=== PATIENT | male | born 1990 | race Caucasian/White ===

== ENCOUNTER 2022-06-22 10:47 | Emergency (ER) | payer BC, OTHER ==
[2022-06-22 10:53] VITALS: BP 150/81; PULSE 81; RESP 18; TEMP 97.9
[2022-06-22] MEDS ORDERED: KETOROLAC 15 MG/ML 1 ML VIAL IM STA (10:59)
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
--- NOTE | 2022-06-22 11:29 | XR ---
EXAMINATION TYPE: XR foot complete RT DATE OF EXAM: 06/22/2022 COMPARISON: None HISTORY: Pain TECHNIQUE: 3 view right foot FINDINGS: No acute fractures or dislocations are evident. Soft tissues appear unremarkable. Follow up exams can be performed 7-10 days from acute trauma for continued pain. IMPRESSION: 1. Normal 3 view right foot
--- NOTE | 2022-06-22 11:32 | XR ---
EXAMINATION TYPE: XR ankle complete RT DATE OF EXAM: 06/22/2022 COMPARISON: None HISTORY: Pain, fall jumping TECHNIQUE: 3 view right ankle FINDINGS: The ankle mortise is intact. In the AP projection there may be some subtle calcification in ferior to the lateral malleolus. This is not identified on the additional projections and may be due to positioning. An avulsion is not entirely excluded. There is soft tissue swelling over the lateral malleolus. Follow up exams can be performed 7-10 days from acute trauma for continued pain. MRI could be perform ed to evaluate for soft tissue injury. IMPRESSION: 1. There is some calcification inferior to the medial malleolus right ankle which could be an avulsi on. This could be artifact due to positioning. There is soft tissue swelling over this site. Consider avulsion and close follow-up.
== END 2022-06-22 12:09 | disposition home or self-care (01) ==
LOC: EC 10:47
DX: S82.51XA Displaced fracture of medial malleolus of right tibia, initial encounter for closed fracture (principal); I10 Essential (primary) hypertension; F17.200 Nicotine dependence, unspecified, uncomplicated; W19.XXXA Unspecified fall, initial encounter
CPT/HCPCS: 73610; 73630; 99283; 96372; L4350; J1885

== ENCOUNTER 2022-09-14 23:38 | Inpatient (IN) | payer BC ==
[2022-09-15 00:18] VITALS: BP 122/74; PULSE 88; RESP 15; TEMP 98.6
[2022-09-15] MEDS ORDERED: LORazepam 2 MG/ML INJ IM STA (00:30)
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
[2022-09-15] MEDS ORDERED: HALOPERIDOL LACTATE 5 MG/ML 1 ML VIAL IM PRN (09:19)
[2022-09-15] MEDS ORDERED: LORazepam 1 MG/0.5 ML VIAL IM PRN ×2 (09:19→10:02)
[2022-09-15] MEDS ORDERED: ACETAMINOPHEN TAB 325 MG TAB PO PRN (09:19)
[2022-09-15] MEDS ORDERED: MAGNESIUM HYDROXIDE 2,400 MG/10 ML CUP PO PRN (09:19)
[2022-09-15] MEDS ORDERED: MAG HYDROX/AL HYDROX/SIMETH 30 ML CUP PO PRN (09:19)
[2022-09-15] MEDS: FOLIC ACID 1 MG TAB PO SCH ×2 (10:36→10:41)
[2022-09-15] MEDS: MULTIVITAMINS, THERA 1 EACH TAB PO SCH ×2 (10:36→10:41)
[2022-09-15] MEDS: THIAMINE 100 MG TAB PO SCH ×2 (10:36→10:40)
[2022-09-15] MEDS: chlordiazePOXIDE 25 MG CAP PO SCH ×3 (10:37→16:39)
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
[2022-09-16] MEDS: QUEtiapine 50 MG TAB PO SCH ×2 (05:59→20:19)
[2022-09-16] MEDS: chlordiazePOXIDE 25 MG CAP PO SCH ×3 (05:59→11:29)
[2022-09-16] MEDS: MULTIVITAMINS, THERA 1 EACH TAB PO SCH ×2 (09:18→10:28)
[2022-09-16] MEDS: FOLIC ACID 1 MG TAB PO SCH ×2 (09:18→10:28)
[2022-09-16] MEDS: SERTRALINE 50 MG TAB PO SCH ×2 (09:18→10:28)
[2022-09-16] MEDS: THIAMINE 100 MG TAB PO SCH ×2 (09:18→10:28)
[2022-09-16] MEDS: NICOTINE 14MG/24HR PATCH TRANSDERM SCH ×2 (09:18→10:28)
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
--- NOTE | 2022-09-16 10:45 | P.HPMEDMHU ---
History of Present Illness H&P Date: 09/16/22 Chief Complaint: Anxiety Patient is a 32-year-old male with a past medical history of PTSD and depression and anxiety who was admitted to the psych unit for major depressive disorder. Patient states that he does not take any medications at home. Patient stated th at he does smoke extensively. He states that he would like to quit smoking. He is requesting for nicotine patches on discharge. Patient has no acute medical complaints. He believes he has ADHD and is wondering if he can get some Adderall. Review of Systems 10 ROS reviewed and are negative except as noted in HPI Past Medical History Past Medical History: Hypertension History of Any Multi-Drug Resistant Organisms: None Reported Past Surgical History: Tonsillectomy Past Psychological History: Anxiety, Depression, PTSD Smoking Status: Current every day smoker Past Alcohol Use History: Occasional Past Drug Use History: None Reported Medications and Allergies Home Medications Medication Instructions Recorded Confirmed Type Ibuprofen [Motrin] 800 mg PO Q6HR #30 tab 06/22/22 Rx Allergies Allergy/AdvReac Type Severity Reaction Status Date / Time No Known Allergies Allergy Verified 09/15/22 00:13 Physical Exam Osteopathic Statement: *. No significant issues noted on an osteopathic structural exam other than those noted in the History and Physical/Consult. General: [Alert and oriented, well nourished, no acute distress]. Eye: [PERRL, EOMI, normal conjunctiva]. HENT: [Normocephalic, clear tympanic membranes, normal hearing, moist oral mucosa, no scleral icterus, no sinus tenderness]. Neck: [Supple, non-tender, no carotid bruits, no JVD, no lymphadenopathy]. Lungs: [Clear to auscultation and percussion, non-labored respiration]. Heart: [Normal rate, regular rhythm, no murmur, gallop or edema]. Abdomen: [Soft, non-tender, non-distended, normal bowel sounds, no masses]. Musculoskeletal: [Normal range of motion and strength, no tenderness or swelling]. Skin: [Skin is warm, dry and pink, no rashes or lesions]. Neurologic: [Awake, alert, and oriented X3, CN II-XII intact]. Psychiatric: [Cooperative, appropriate mood and affect]. Cranial Nerve Examination - Cranial Nerves Cranial Nerve I- Olfactory: Intact Cranial Nerve II- Optic: Intact Cranial Nerve III- Oculomotor: Intact Cranial Nerve IV- Trochlear: Intact Cranial Nerve V- Trigeminal: Intact Cranial Nerve - Abducens: Intact Cranial Nerve VII- Facial: Intact Cranial Nerve VIII- Auditory: Intact Cranial Nerve IX- Glossopharyngeal: Intact Cranial Nerve X- Vagus: Intact Cranial Nerve XI- Accessory: Intact Cranial Nerve XII- Hypoglossal: Intact Assessment and Plan Assessment: Tobacco abuse Patient counseled on smoking cessation Major depressive disorder As per your psych management Thank you for the consult. Please do not hesitate to contact us.
[2022-09-16 12:02] LABS: Basophils # (A) 0.1 k/uL (0-0.2); Basophils % (A) 1 %; Eosinophils # (A) 0.1 k/uL (0-0.7); Eosinophils % (A) 1 %; HCT 46.9 % (39.0-53.0); Lymphocytes # (A) 1.4 k/uL (1.0-4.8); Lymphocytes % (A) 22 %; MCH 30.5 pg (25.0-35.0); MCHC 34.1 g/dL (31.0-37.0); MCV 89.4 fL (80.0-100.0); Mean Platelet Volume 6.7; Monocytes # (A) 0.2 k/uL (0-1.0); Monocytes % (A) 3 %; Neutrophils # (A) 4.6 k/uL (1.3-7.7); Neutrophils % (A) 73 %; Platelet Count 322 k/uL (150-450); RBC 5.24 m/uL (4.30-5.90); RDW 11.9 % (11.5-15.5); WBC 6.3 k/uL (3.8-10.6)
[2022-09-16 12:32] LABS: ALT 27 U/L (4-49); AST 37 U/L (17-59); African American GFR (CKD) >90 (>60 ml/min/1.73 sqM); Albumin 4.5 g/dL (3.5-5.0); Alkaline Phosphatase 67 U/L (38-126); Anion Gap 11 mmol/L; Bilirubin, Delta 0.2 mg/dL (0.0-0.2); Bilirubin,Unconjugated 0.7 mg/dL (0.0-1.1); Blood Urea Nitrogen 23 mg/dL (9-20); Calcium 9.5 mg/dL (8.4-10.2); Carbon Dioxide 27 mmol/L (22-30); Chloride 103 mmol/L (98-107); Glucose 89 mg/dL (74-99); Non-African American GFR(CKD) 87 (>60 ml/min/1.73 sqM); Potassium 5.1 mmol/L (3.5-5.1); Sodium 141 mmol/L (137-145); Total Bilirubin 0.9 mg/dL (0.2-1.3); Total Protein 7.1 g/dL (6.3-8.2)
[2022-09-16] MEDS: LORazepam 1 MG TAB PO PRN (16:54)
[2022-09-16] MEDS: haloperidoL 5 MG TAB PO PRN (16:56)
[2022-09-16 18:09] LABS: Chol/HDL Ratio 3.76 Ratio; LDL Cholesterol,Calculated 106.7 mg/dL (0.0-131.0)
[2022-09-17] MEDS: NICOTINE 14MG/24HR PATCH TRANSDERM SCH (08:11)
[2022-09-17] MEDS: FOLIC ACID 1 MG TAB PO SCH (08:12)
[2022-09-17] MEDS: SERTRALINE 50 MG TAB PO SCH (08:12)
[2022-09-17] MEDS: MULTIVITAMINS, THERA 1 EACH TAB PO SCH (08:12)
[2022-09-17] MEDS: THIAMINE 100 MG TAB PO SCH (08:12)
[2022-09-17] MEDS: LORazepam 1 MG TAB PO PRN ×3 (08:15→19:47)
--- NOTE | 2022-09-17 11:34 | P.PN ---
Progress Note - Text Progress Note Date: 09/17/22 Interval History: Patient was seen lying in bed today and was directable and agreeable to speak with health underwriter. Patient claims that he is doing better with regards to his mood and irritability. He appeared to be more directable during conversation and more appropriate. He states that he spoke with his yesterday over the phone and states that "we were working on her relationship" and states that he is allowed back. He still not has signed an MARS to plan for discharge. He claims that the medications of been helping so far and wants to remain on the same dose. He states that the Seroquel is helping him with sleep. He states that he is feeling less impulsive and less angry at this time. He states that he is going to some groups and more active on the unit however in the evening and afternoon. He continues to be fairly focused on discharge. Has been taking his medications. At this time patient denies any suicidal or homical ideations, intent or plan. Patient denies any auditory, visual hallucinations and denies any paranoia or delusions. Patient was fairly focused on discharge. Mental Status Exam: General Appearance: Patient appears to be well built, laying in bed, stated age is alert, directable, less irritable today Behavior: Patient is less irritable today. More directable. Speech: Patient's speech is fluent and nonpressured. Mood/Affect: Mood is "good", affect is incongruent and constricted. Suicidality/Homicidality: Patient denies having any suicidal or homicidal ideation intent or plan. Perceptions: Patient denies any visual hallucinations and denies any auditory hallucinations Though content/process: Seems to be fairly focused on discharge. Appears to be more future oriented. More logical. Memory and concentration: AOX3, grossly intact for the purposes of this session Judgment and insight: Improving mildly. Assessment Major depressive disorder, without psychotic features PTSD Alcohol abuse Nicotine dependence Plan: -Patient continues to meet criteria for inpatient psychiatric admission for symptom stabilization and safety. Patient has signed adult voluntary form and was placed in patient's chart. -Medications: Zoloft 50 mg daily for mood/anxiety, Seroquel 50 mg daily at bedtime for mood stabilization/anxiety/sleep. decrease librium 10 mg tid for etoh withdrawals. -When necessary Ativan and Haldol for agitation/aggression. -NRT - nicotine patch -SW on board for discharge planning. Encouraged the patient to participate in [place]. Patient is improving psychiatrically. waste water worker to touch base with patient's over the phone to discuss discharge planning and also ensure that guns or weapons are not in the house. Likely discharge tomorrow back home.
[2022-09-17] MEDS: haloperidoL 5 MG TAB PO PRN (13:41)
[2022-09-17] MEDS: NICOTINE GUM (POLACRILEX) 2 MG GUM BUCCAL PRN ×2 (14:47→20:39)
[2022-09-17] MEDS: QUEtiapine 50 MG TAB PO SCH (21:03)
[2022-09-18] MEDS: MULTIVITAMINS, THERA 1 EACH TAB PO SCH (08:53)
[2022-09-18] MEDS: THIAMINE 100 MG TAB PO SCH (08:53)
[2022-09-18] MEDS: SERTRALINE 50 MG TAB PO SCH (08:53)
[2022-09-18] MEDS: NICOTINE 14MG/24HR PATCH TRANSDERM SCH (08:53)
[2022-09-18] MEDS: FOLIC ACID 1 MG TAB PO SCH (08:53)
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
[2022-09-18] MEDS: LORazepam 1 MG TAB PO PRN (11:38)
== END 2022-09-18 11:48 | disposition home or self-care (01) | DRG 881 ==
LOC: EC 23:38 → 3MHU 09-15 09:09
PROVIDERS: ADMIT Psychiatry & Neurology Psychiatry; ATTEND Psychiatry & Neurology Psychiatry
DX: F32.9 Major depressive disorder, single episode, unspecified (principal); R45.851 Suicidal ideations; F43.10 Post-traumatic stress disorder, unspecified; F10.10 Alcohol abuse, uncomplicated; F17.200 Nicotine dependence, unspecified, uncomplicated; I10 Essential (primary) hypertension; Z79.899 Other long term (current) drug therapy; Z20.822 Contact with and (suspected) exposure to COVID-19
CPT/HCPCS: 80053; 80061; 82075; 82248; 83036; 84443; 85025; 87635; 96372; 99285